=== PATIENT | female | born 1985 | race Caucasian/White ===

== ENCOUNTER 2016-06-30 17:30 | Emergency (ER) | payer OTHER ==
--- NOTE | 2016-06-30 17:51 | UCPHY ---
H & P Time Seen by Provider: 06/30/16 17:35 Patient Type: New HPI/ROS: Chief complaint. Finger laceration HPI. 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 She is right handed and was holding the knife in her right hand. She accidentally cut the tip of her left 4th digit. She had a hard time controlling the bleeding at work. Denies focal weakness paresthesias. No sense of foreign body. She is not current on tetanus immunization ROS Constitutional. no fever/chills, no weakness Eyes. no problems with vision ENT. no sore throat, no nasal drainage Cardiovascular. no chest pain Respiratory. no shortness of breath, no cough Abdominal. no abdominal pain, no nausea/vomiting, no diarrhea . no problems urinating MS. no calf pain/swelling, no neck/back pain, no joint pain Skin. Left 4th digit laceration Lymph. no swollen glands Neuro. no headache, no dizziness, no difficulty walking or with speech Past Medical/Surgical History: Healthy Social History: Single, nonsmoker, no alcohol Physical Exam: General Appearance: Alert well-developed female mild distress vital signs stable Eyes: Pupils equal and round no pallor or injection. ENT, Mouth: Mucous membranes are moist. Respiratory: There are no retractions, lungs are clear to auscultation. Cardiovascular: Regular rate and rhythm. Gastrointestinal: Abdomen is soft and nontender, no masses, bowel sounds normal. Neurological: Awake and alert, sensory and motor exams grossly normal. Skin: Warm and dry, no rashes. Musculoskeletal: Neck is supple nontender. Extremities avulsion laceration to the tip of the left 4th digit. Measures about 3 x 5 mm. No active bleeding. Psychiatric: Patient is oriented X 3, there is no agitation. Allergies/Adverse Reactions: No Known Allergies Allergy (Verified 06/30/16 17:47) Home Medications: Medication Instructions Recorded NK [No Known Home Meds] 06/30/16 MDM/Departure - MDM ED Course/Re-evaluation: The wound is cleaned and dressed Patient is given a tetanus shot Patient remains stable. She and I discussed treatment plan including criteria for return importance of follow-up further evaluation. She expresses understanding and agreement Differential Diagnosis: I considered retained foreign body, infection potential - Depart Disposition: Home, Routine, Self-Care Clinical Impression: Finger laceration Qualifiers: Encounter type: initial encounter Qualifier Code: (S61.219A) Laceration without foreign body of unspecified finger without damage to nail, initial encounter Condition: Good Instructions: Laceration Without Closure (ED) Additional Instructions: Keep the cut clean and dry. You may shower and wash your hands. Keep covered with a Band-Aid and antibiotic ointment for the next 7-10 days. Return for signs of infection. Referrals: ROBERT LUCAS,. [Primary Care Provider] - As per Instructions Work Comp [place] [facility] [place] - As per Instructions - PQRS PQRS Measurement: 134: Depression screening and followup, PRIME MD-PHQ2 (12 years and older) Over the last 2 weeks, how often have you been bothered by any of the following problems? 1. Feeling down, depressed, or hopeless? 2. Little interest or pleasure in doing things? Patient answered no to both 1 and 2 130: Documentation of medications. Reviewed all patient medications, doses, route and frequency. 226: Do you smoke? No.
[2016-06-30 17:52] VITALS: BP 134/80; PULSE 73; RESP 16; TEMP 97.5; O2SAT 96
[2016-06-30] MEDS ORDERED: TDAP ADULT 0.5 ML VIAL (BOOSTRIX) IM ONE (17:52)
== END 2016-06-30 18:12 | disposition home or self-care (01) ==
LOC: CED 17:30
DX: S61.215A Laceration without foreign body of left ring finger without damage to nail, initial encounter (principal); W26.0XXA Contact with knife, initial encounter
CPT/HCPCS: 99203-PO; G0463-PO